=== PATIENT | male | born 1970 | race African-American/Black ===

== ENCOUNTER 2021-11-12 11:57 | Outpatient (CLI) | payer OTHER, MEDICAID, SELFPAY ==
--- NOTE | 2021-11-12 12:03 | ECHOD_ITS ---
Reason For Study: Chest pain Procedure This was a 2D Doppler, Color Flow transthoracic echocardiogram. Exam performed in department. Left Ventricle Normal LV size. Left ventricular systolic function is normal. The estimated ejection fraction is 55 %. No regional wall motion abnormalities noted. Right Ventricle Normal RV size. Normal systolic function. Atria Normal left atrium. Normal right atrium. Mitral Valve Normal mitral valve. Tricuspid Valve Normal tricuspid valve. Mild tricuspid valve insufficiency. Pulmonary artery systolic pressure is 26 mmHg. Aortic Valve Trisinus/trileaflet aortic valve. Pulmonic Valve Normal pulmonic valve. Great Vessels Normal aortic root. The pulmonary artery is normal size. Normal inferior vena cava. Pericardium/Pleural No pericardial effusion. MMode/2D Measurements & Calculations LVIDd: 4.3 cm IVSd: 0.90 cm Ao root diam: 2.8 cm LVIDs: 2.7 cm LVPWd: 0.97 cm RVDd: 3.3 cm FS: 37.3 % LAV(MOD-bp): 32.6 ml LVAd ap4: 23.1 cm2 SV(MOD-sp4): 33.9 ml LAV(MOD-bp) Indexed: 18.4 ml/m2 LVLd ap4: 7.4 cm LAV(MOD-sp2): 25.3 ml EDV(MOD-sp4): 59.5 ml LAV(MOD-sp4): 32.9 ml EDV(sp4-el): 60.9 ml LVAs ap4: 13.9 cm2 LVLs ap4: 6.3 cm ESV(MOD-sp4): 25.5 ml ESV(sp4-el): 25.9 ml EF(MOD-sp4): 57.1 % EF(sp4-el): 57.5 % SV(sp4-el): 35.0 ml LA A4 area: 14.5 cm2 LA dimension(2D): 3.0 cm RA A4 area: 14.0 cm2 Doppler Measurements & Calculations MV E max sarbjit: 60.8 cm/sec Lat Peak E' Sarbjit: 14.0 cm/sec Med Peak E' Sarbjit: 11.1 cm/sec MV A max sarbjit: 59.0 cm/sec E/E' lat: 4.3 E/E' med: 5.5 MV E/A: 1.0 Ao V2 max: 115.4 cm/sec PA V2 max: 91.8 cm/sec TR max sarbjit: 241.0 cm/sec Ao max P.3 mmHg TR max P.2 mmHg ECHO/Echo Complete Interpretation Summary Normal LV size. Left ventricular systolic function is normal. The estimated ejection fraction is 55 %. Pulmonary artery systolic pressure is 26 mmHg. Ordering Physician: Felice Franco Performed By: Kim Rodriguez RDCS
--- NOTE | 2021-11-12 17:14 | STRESSREP ---
Stress Test Report Exercise stress test. 51-year-old male with a history of chest pain. Stress protocol: Resting EKG demonstrates normal sinus rhythm with a rate of 78 bpm normal intervals are noted resting blood pressure is 116/62 mmHg. Patient exercised according to regular Royal protocol for total duration of 9 minutes. Patient completed stage III of the Royal protocol. The maximum heart rate attained was 134 bpm which was 78% of max impact at heart rate the maximum workload was 10.1 metabolic equivalents. At rest there were no ST or T wave changes noted to suggest ischemia and at peak exercise upsloping ST changes were noted with did not meet the criteria for ischemia. No clinical angina was noted. The test was terminated due to fatigue. The peak blood pressure was 150/62 mmHg. No arrhythmias were noted. Conclusion: Exercise stress test with no EKG criteria for ischemia at a high workload. Excellent functional aerobic capacity.
== END 2021-11-12 23:59 | disposition home or self-care (01) ==
LOC: CVS 11:59
PROVIDERS: PCP Student in an Organized Health Care Education/Training Program; Visit Provider Student in an Organized Health Care Education/Training Program
DX: R07.9 Chest pain, unspecified (principal); Z72.0 Tobacco use; F14.90 Cocaine use, unspecified, uncomplicated; I51.7 Cardiomegaly
CPT/HCPCS: 93017; 93306

== ENCOUNTER 2023-01-19 18:01 | Outpatient (REF) | payer SELFPAY ==
[2023-01-19 18:01] VITALS: BP 118/78; PULSE 69; RESP 18; TEMP 36.6; O2SAT 100
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
[2023-01-19] MEDS: Acetaminophen 500 MG Tablet 1000 MG PO (19:03)
== END 2023-01-19 19:09 | disposition home or self-care (01) ==
LOC: ED 18:01
PROVIDERS: PCP Student in an Organized Health Care Education/Training Program; Visit Provider Student in an Organized Health Care Education/Training Program
DX: Z00.00 Encounter for general adult medical examination without abnormal findings (principal)
CPT/HCPCS: 72125; 70450

== ENCOUNTER 2024-08-27 16:48 | Emergency (ER) | payer MEDICAID, SELFPAY ==
[2024-08-27 16:50] VITALS: BP 117/100; PULSE 77; RESP 16; TEMP 37.1; O2SAT 100; BMI 21.8
--- NOTE | 2024-08-27 17:28 | EDS_ITS ---
HPI History of Present Illness HPI Narrative: 54-year-old male history of arthritis, asthma and underlying mental illness. States that on the on [place] he tore some dry skin off between his fourth and fifth toe. The last 3 days he has noted pain and mild swelling in that region. Denies any discharge or bleeding. He denies being diabetic. He is had no fever. He has had no trauma to his foot or prior surgery. Chief Complaint: Lower Extremity Injury Informant: patient Occured/Mechanism Mechanism/Context: No injury and No blunt trauma Onset/Context/Timing Onset: Days Context: Gradual Onset Timing: Continuous Quality of Pain: Sharp Current Severity: Moderate Maximum Severity: Moderate Associated Symptoms Associated Symptoms: Negative for Parasthesia, Weakness or Loss of Funtion Narrative Narrative: 54-year-old complaining of pain between his right fourth and fifth toes after tearing skin off several days before. Mildly swollen and mildly red. No history of gout. No history of trauma. Prior similar symptoms: No Recent Illness/Hospitalization: No PFSH PFSH Medical History no medical history Home Medications ?Medication ?Instructions ?Recorded ?Last Taken ?Type doxycycline hyclate 100 mg capsule 100 mg PO BID 10 days #20 caps 08/27/24 Unknown Rx Allergy/AdvReac Type Severity Reaction Status Date / Time sulfamethoxazole (From Allergy Mild Itching Verified 08/27/24 16:49 Bactrim) trimethoprim (From Bactrim) Allergy Mild Itching Verified 08/27/24 16:49 azithromycin Allergy Hives Verified 08/27/24 16:49 morphine Allergy Hives Verified 08/27/24 16:49 Penicillins Allergy Hives Verified 08/27/24 16:49 Social History Smoking Status: Smoker, status unknown ROS ROS ED ROS Narrative Denies recent illness other than a URI. Constitutional Constitutional ED: Denies chills or fever(s) Eyes Eyes: Denies blurry vision ENT ENT ED: Reports rhinorrhea; Denies ear pain Cardiovascular Cardiovascular: Denies chest pain Respiratory/Chest Respiratory/Chest: Reports cough Gastrointestinal Gastrointestinal: Denies abdominal pain Genitourinary Genitourinary ED: Denies dysuria or hematuria Musculoskeletal Musculoskeletal: Denies arthralgias Integumentary Denies abscess Neurologic Neurologic: Denies headache(s) Psychiatric Psychiatric: Denies anxiety Endocrine Endocrinology: Denies polydipsia Hematologic/Lymphatic Hematologic/Lymphatic: Denies easy bleeding Allergic/Immunologic Allergic/Immunologic ED: Denies mouth swelling EXAM Physical Exam Narrative Exam Narrative: 54-year-old male vital signs are stable afebrile. Does not look septic toxic. No distress. H EENT exam unremarkable. Poor dentition. Neck nontender no lymphadenopathy. Lungs clear to auscultation bilaterally. Heart regular rate and rhythm rate about 75 no murmur. Chest wall ribs nontender. Abdomen soft n ontender. Back nontender. Moving all 4 extremities. Neurovascular intact. Specifically right hip, knee and ankle are nontender nonswollen. Normal range of motion. Right foot he has got fungal infection of his nails. Between his right small toe and fourth toe in the webspace it is mildly red and swollen and tender consistent with an early cellulitis. There is no bleeding pus or discharge. There is no abscess. There is no bony deformity. The foot itself is not otherwise swollen or red. There is no lymphangitic streaking. There is no inguinal lymphadenopathy. Const Vital Signs: 08/27/24 16:50 Temperature 98.7 F Temperature Source Oral Pulse Rate 77 Respiratory Rate 16 Blood Pressure 117/100 H Blood Pressure Mean 105 Pulse Ox 100 Oxygen Delivery Method Room Air Positive well nourished and well developed; Negative for obese, cachectic, contractures or unkempt General Appearance ED: well developed and NAD; Negative for unkempt, cachectic or contractures Nutritional Appearance: Negative for cachectic or obese HEENT Reports moist mucous membranes normocephalic and atraumatic; Negative for trauma or tenderness Eyes PERRL Neck full ROM and supple Thyroid: Negative for tender Lymph Lymphatic: Negative for other Chest Wall inspection of chest normal and palpation of chest normal Resp normal respiratory effort, no retractions and clear to auscultation bilaterally Cardio regular rate, regular rhythm, S1 normal heart sound, S2 normal heart sound and no murmurs GI non-tender, non-distended and no masses Palpation: soft; Negative for tender or guarding Back/Spine no CVA tenderness General Back: Negative for CVA tenderness Cervical Spine: Negative for cervical spine tenderness Extremity normal to inspection and full ROM Extremity Narrative: Except right foot. Tender, mildly red and mildly swollen between the fourth and fifth toes. Consistent with early soft tissue infection early cellulitis. No abscess. No necrotic tissue. No subcu air or crepitance. Neuro oriented x3, CN's II-XII intact bilaterally and moves all extremities Sensorium / Orientation: alert, oriented to person, oriented to place and oriented to time; Negative for orientation impaired or confused Motor Exam: strength 5/5 throughout Psych mental status grossly normal Appearance: Negative for unkempt Skin no wounds Skin Narrative: Except between the fourth and fifth toes. Lesions: no lesions Rashes: no rashes MDM MDM MDM Narrative Medical decision making narrative: 54-year-old male took skin off between his fourth and fifth toe on the send about 3-day history of pain and swelling. I think is an early soft tissue infection. There is nothing to incise and drain. There is no abscess. He does not need x-rays or labs. He has been no trauma. He has multiple reported allergies to antibiotics. He will be placed on doxycycline 1 pill twice a day for 10 days. Given first dose in the ER. He reports an allergy to penicillin, Bactrim Keflex and clindamycin. History & Record Review Discussion w/independent historian: Patient Discharge Plan Triage Chief Complaint: Lower Extremity Injury ED Provider: Dawson Hinojosa Dx/Rx/DC Orders Clinical Impression: Cellulitis Instructions: ED Cellulitis Prescriptions: New doxycycline hyclate 100 mg capsule 100 mg PO BID 10 Days Qty: 20 0RF Primary Care Provider: Felice Franco Referrals: Manan Cameron DPM [Med Staff - Active Staff] - 3-5 Days if not improving Felice Franco DO [Primary Care Provider] - 3-5 Days if not improving Activity Restrictions/Additional Instructions: Soft tissue infection between your fourth and fifth toes on your right foot. Clean daily with soap and water. Dry thoroughly. Take the antibiotic doxycycline 1 pill twice a day for the next 10 days. Follow-up with the crm coordinator Dr. Cameron if not improving. Return if a lot worse. Motrin and Tylenol for pain Print Language: Armenian Disposition Disposition: Home, Self Care
[2024-08-27] MEDS: levoFLOXacin 750 MG Tablet PO (18:16)
[2024-08-27 18:18] VITALS: BP 137/63; PULSE 75; RESP 16; TEMP 36.9; O2SAT 100
== END 2024-08-27 18:19 | disposition home or self-care (01) ==
PROVIDERS: Emergency Provider Emergency Medicine; PCP Student in an Organized Health Care Education/Training Program; Visit Provider Emergency Medicine
DX: L03.031 Cellulitis of right toe (principal); F17.200 Nicotine dependence, unspecified, uncomplicated
CPT/HCPCS: 99282